=== PATIENT | male | born 1950 | race Hispanic/Latino ===

== ENCOUNTER 2020-06-28 02:46 | Emergency (ER) | payer OTHER ==
[2020-06-28] MEDS ORDERED: NA CHLORIDE 0.9% 1,000 ML ONE (03:22)
[2020-06-28] MEDS ORDERED: D50W 50 ML IV ONE (03:22)
[2020-06-28 03:26] LABS: Absolute Lymphocytes (CBC) 4.5 K/uL (0.7-4.9); Basophils % 0.6 % (0-1.3); Hematocrit 43.5 % (39.6-49.0); Lymphocytes % 31.8 % (15.3-44.8); MPV 8.2 fL (7.6-11.3); RBC Red Blood Cell Count 4.85 M/uL (4.33-5.43)
[2020-06-28 03:39] LABS: ALT/SGPT 25 U/L (12-78); AST/SGOT 17 U/L (15-37); Albumin 3.9 g/dL (3.4-5.0); Alkaline Phosphatase 109 U/L (45-117); BUN Blood Urea Nitrogen 23 mg/dL (7-18); Bicarbonate 30 mmol/L (21-32); Bilirubin Direct 0.1 mg/dL (0-0.2); Bilirubin Total 0.4 mg/dL (0.2-1.0); Glucose Level 61 mg/dL (74-106); Magnesium 2.5 mg/dL (1.8-2.4); NT PRO-BNP 108 pg/mL (<125); Sodium Level 141 mmol/L (136-145); Troponin (Emerg Dept Use Only) < 0.02 ng/mL (0.0-0.045)
[2020-06-28] MEDS ORDERED: POTASSIUM 25 MEQ EFFERV TAB ONE (04:41)
--- NOTE | 2020-06-28 05:26 | ER ---
Nurse's Notes [facility] Name: Wilbert Cano Jr Age: 70 yrs Sex: Male : 1950 Arrival Date: 06/28/2020 Time: 02:48 Bed 6 Private MD: Diagnosis: Hypoglycemia, unspecified;Hypokalemia;Unspecified kidney failure;Type 1 diabetes mellitus Presentation: 06/28 02:55 Chief complaint: Patient states: My blood sugar was very low, im not really sure how sg low but I was covered in sweat, so I dont know what I was thinking but for some reason I gave myself 48 units of my Insulin and then I gave another 15 units of my Insulin pen, then when my brother came over to check on me cause I had called him and then I started eating some things to keep my sugar up. Coronavirus screen: Client denies travel out of the [place] in the last 14 days. At this time, the client does not indicate any symptoms associated with coronavirus-19. Ebola Screen: Patient negative for fever greater than or equal to 101.5 degrees Fahrenheit, and additional compatible Ebola Virus Disease symptoms Patient denies exposure to infectious person. Patient denies travel to an Ebola-affected area in the 21 days before illness onset. No symptoms or risks identified at this time. Initial Sepsis Screen: Does the patient meet any 2 criteria? No. Patient's initial sepsis screen is negative. Does the patient have a suspected source of infection? No. Patient's initial sepsis screen is negative. Risk Assessment: Do you want to hurt yourself or someone else? Patient reports no desire to harm self or others. Onset of symptoms was June 28, 2020. Care prior to arrival: None. Mechanism of Injury: No Mechanism of Injury. Transition of care: patient was not received from another setting of care. 02:55 Acuity: SHRUTHI 2 sg 02:55 Method Of Arrival: Ambulatory sg Historical: - Allergies: 03:00 No Known Allergies; sg - Home Meds: 03:00 Insulin: Humalog Sub-Q [Active]; sg - PMHx: 03:00 Diabetes - IDDM; sg - Immunization history:: Adult Immunizations up to date. - Social history:: Smoking status: Patient denies any tobacco usage or history of. Screenin:18 Abuse screen: Denies threats or abuse. Nutritional screening: No deficits noted. ea Tuberculosis screening: No symptoms or risk factors identified. Fall Risk IV access (20 points). Assessment: 03:15 General: Appears in no apparent distress. Behavior is calm, cooperative, appropriate ll2 for age. Pain: Denies pain. Neuro: Level of Consciousness is awake, alert, obeys commands, Oriented to person, place, time, situation. Cardiovascular: Patient's skin is warm and dry. Respiratory: Airway is patent Respiratory effort is even, unlabored, Respiratory pattern is regular, symmetrical. GI: No signs and/or symptoms were reported involving the gastrointestinal system. : No signs and/or symptoms were reported regarding the genitourinary system. EENT: No signs and/or symptoms were reported regarding the EENT system. Derm: Skin is intact, is healthy with good turgor, Skin is dry, Skin is pink, warm \T\ dry. Musculoskeletal: Circulation, motion, and sensation intact. Range of motion: intact in all extremities. 04:20 Reassessment: Patient and/or family updated on plan of care and expected duration. Pain ll2 level reassessed. Patient is alert, oriented x 3, equal unlabored respirations, skin warm/dry/pink. 05:15 Reassessment: Patient and/or family updated on plan of care and expected duration. Pain ll2 level reassessed. Patient is alert, oriented x 3, equal unlabored respirations, skin warm/dry/pink. Vital Signs: 03:17 BP 109 / 74; Pulse 79; Resp 18; Temp 98; Pulse Ox 96% ; ea 04:00 BP 138 / 77; Pulse 68; Resp 18; Pulse Ox 96% on R/A; ll2 05:02 BP 145 / 77; Pulse 71; Resp 15; Pulse Ox 97% on R/A; ll2 ED Course: 02:48 Patient arrived in ED. cl3 02:49 Orlando Cunningham RN is Primary Nurse. rv 02:55 Arm band placed on. sg 02:57 Alfred Ruiz MD is Attending Physician. parminder 02:58 Patient has correct armband on for positive identification. Bed in low position. Call ll2 light in reach. Side rails up X 1. Pulse ox on. NIBP on. 02:59 Triage completed. sg 03:07 Inserted saline lock: 20 gauge in right antecubital area, using aseptic technique. ds4 Blood collected. 03:19 XRAY Chest (1 view) In Process Unspecified. EDMS 03:41 EKG done, by ED staff, reviewed by Alfred Ruiz MD. ds4 03:52 Makayla Champagne, RN is Primary Nurse. ll2 05:46 No provider procedures requiring assistance completed. IV discontinued, intact, ll2 bleeding controlled, No redness/swelling at site. Pressure dressing applied. Administered Medications: 03:17 Drug: NS 0.9% 1000 ml Route: IV; Rate: 125 ml/hr; Site: right antecubital; ea 05:48 Follow up: Response: No adverse reaction; IV Status: Order to discontinue infusion; IV ll2 Intake: 500ml 03:17 Drug: D50W 50 ml Route: IVP; Site: right antecubital; ea 04:35 Follow up: Response: No adverse reaction ll2 04:35 Drug: Potassium Effervescent Tablet 25 mEq Route: PO; ll2 05:00 Follow up: Response: No adverse reaction ll2 Point of Care Testing: Blood Glucose: 05:48 Blood Glucose: 87 mg/dL; ll2 Ranges: Intake: 05:48 IV: 500ml; Total: 500ml. ll2 Outcome: 05:26 Discharge ordered by MD. zurita 05:46 Discharged to home ambulatory. ll2 05:46 Condition: stable 05:46 Discharge instructions given to patient, Instructed on discharge instructions, follow up and referral plans. Demonstrated understanding of instructions, follow-up care. 05:47 Patient left the ED. ll2 Signatures: Dispatcher [employer] EDMS Prem Lara RN RN sg Anderson, Corey, MD MD cha Swanson, Donovan ds4 Isis Caicedo RN RN ea Vicente, Ronaldo, RN RN rv Lewis, Charde cl3 Makayla Champagne RN RN ll2
--- NOTE | 2020-06-28 05:27 | EDPHYS ---
Physician Documentation [facility] Name: Wilbert Cano Jr Age: 70 yrs Sex: Male : 1950 Arrival Date: 06/28/2020 Time: 02:48 Bed 6 Private MD: ED Physician Alfred Ruiz HPI: 06/28 03:16 This 70 yrs old Male presents to ER via Ambulatory with complaints of Altered parminder Mental Status, Low Blood Sugar. 03:16 The patient presents with confusion, decreased mental status, trouble concentrating. parminder Onset: The symptoms/episode began/occurred just prior to arrival. Possible causes: low blood sugar. Associated signs and symptoms: Pertinent positives: confusion, weakness. Current symptoms: In the emergency department the patient's symptoms have improved, moderately, is more alert. Patient's baseline: Neuro: alert and fully oriented. The patient has not experienced similar symptoms in the past. Historical: - Allergies: 03:00 No Known Allergies; sg - Home Meds: 03:00 Insulin: Humalog Sub-Q [Active]; sg - PMHx: 03:00 Diabetes - IDDM; sg - Immunization history:: Adult Immunizations up to date. - Social history:: Smoking status: Patient denies any tobacco usage or history of. ROS: 03:16 Constitutional: Negative for fever, chills, and weight loss, Eyes: Negative for injury, parminder pain, redness, and discharge, ENT: Negative for injury, pain, and discharge, Neck: Negative for injury, pain, and swelling, Cardiovascular: Negative for chest pain, palpitations, and edema, Respiratory: Negative for shortness of breath, cough, wheezing, and pleuritic chest pain, Abdomen/GI: Negative for abdominal pain, nausea, vomiting, diarrhea, and constipation, Back: Negative for injury and pain, : Negative for injury, bleeding, discharge, and swelling, MS/Extremity: Negative for injury and deformity, Skin: Negative for injury, rash, and discoloration, Psych: Negative for depression, anxiety, suicide ideation, homicidal ideation, and hallucinations, Allergy/Immunology: Negative for hives, rash, and allergies, Endocrine: Negative for neck swelling, polydipsia, polyuria, polyphagia, and marked weight changes, Hematologic/Lymphatic: Negative for swollen nodes, abnormal bleeding, and unusual bruising. 03:16 Neuro: Positive for altered mental status, weakness. Exam: 03:16 Constitutional: This is a well developed, well nourished patient who is awake, alert, parminder and in no acute distress. Head/Face: Normocephalic, atraumatic. Eyes: Pupils equal round and reactive to light, extra-ocular motions intact. Lids and lashes normal. Conjunctiva and sclera are non-icteric and not injected. Cornea within normal limits. Periorbital areas with no swelling, redness, or edema. ENT: Nares patent. No nasal discharge, no septal abnormalities noted. Tympanic membranes are normal and external auditory canals are clear. Oropharynx with no redness, swelling, or masses, exudates, or evidence of obstruction, uvula midline. Mucous membranes moist. Neck: Trachea midline, no thyromegaly or masses palpated, and no cervical lymphadenopathy. Supple, full range of motion without nuchal rigidity, or vertebral point tenderness. No Meningismus. Chest/axilla: Normal chest wall appearance and motion. Nontender with no deformity. No lesions are appreciated. Cardiovascular: Regular rate and rhythm with a normal S1 and S2. No gallops, murmurs, or rubs. Normal PMI, no JVD. No pulse deficits. Respiratory: Lungs have equal breath sounds bilaterally, clear to auscultation and percussion. No rales, rhonchi or wheezes noted. No increased work of breathing, no retractions or nasal flaring. Abdomen/GI: Soft, non-tender, with normal bowel sounds. No distension or tympany. No guarding or rebound. No evidence of tenderness throughout. Back: No spinal tenderness. No costovertebral tenderness. Full range of motion. Male : Normal genitalia with no discharge or lesions. Skin: Warm, dry with normal turgor. Normal color with no rashes, no lesions, and no evidence of cellulitis. MS/ Extremity: Pulses equal, no cyanosis. Neurovascular intact. Full, normal range of motion. Neuro: Awake and alert, GCS 15, oriented to person, place, time, and situation. Cranial nerves II-XII grossly intact. Motor strength 5/5 in all extremities. Sensory grossly intact. Cerebellar exam normal. Normal gait. Psych: Awake, alert, with orientation to person, place and time. Behavior, mood, and affect are within normal limits. 03:59 ECG was reviewed by the Attending Physician. [facility] Vital Signs: 03:17 BP 109 / 74; Pulse 79; Resp 18; Temp 98; Pulse Ox 96% ; ea 04:00 BP 138 / 77; Pulse 68; Resp 18; Pulse Ox 96% on R/A; ll2 05:02 BP 145 / 77; Pulse 71; Resp 15; Pulse Ox 97% on R/A; ll2 MDM: 03:00 Patient medically screened. [facility] 03:20 Differential Diagnosis: electrolyte abnormality, hypoglycemia, overdose, volume parminder depletion. Data reviewed: vital signs, nurses notes, lab test result(s), EKG, radiologic studies, plain films, ultrasound. Data interpreted: engine monitor: rate is 79 beats/min, rhythm is regular, Pulse oximetry: on room air is 96 %. Test interpretation: by ED physician or midlevel provider: ECG, plain radiologic studies. Counseling: I had a detailed discussion with the patient and/or guardian regarding: the historical points, exam findings, and any diagnostic results supporting the discharge/admit diagnosis, lab results, radiology results, the need for outpatient follow up. 06/28 02:59 Order name: Basic Metabolic Panel; Complete Time: 04:13 [facility] 06/28 02:59 Order name: CBC with Diff; Complete Time: 04:13 [facility] 06/28 02:59 Order name: LFT's; Complete Time: 04:13 [facility] 06/28 02:59 Order name: Magnesium; Complete Time: 04:13 [facility] 06/28 02:59 Order name: NT PRO-BNP; Complete Time: 04:13 [facility] 06/28 02:59 Order name: Troponin (emerg Dept Use Only); Complete Time: 04:13 [facility] 06/28 02:59 Order name: XRAY Chest (1 view) [facility] 06/28 02:59 Order name: EKG; Complete Time: 03:00 [facility] 06/28 03:13 Order name: Diet Regular; Complete Time: 03:14 [facility] 06/28 03:20 Order name: Glucose, Ancillary Testing; Complete Time: 04:13 [facility] 06/28 04:51 Order name: Glucose, Ancillary Testing; Complete Time: 05:24 [facility] 06/28 02:59 Order name: Cardiac monitoring; Complete Time: 03:11 [facility] 06/28 02:59 Order name: EKG - Nurse/Tech; Complete Time: 03:41 [facility] 06/28 02:59 Order name: IV Saline Lock; Complete Time: 03: [facility] 06/28 02:59 Order name: Labs collected and sent; Complete Time: 03: [facility] 06/28 02:59 Order name: O2 Per Protocol; Complete Time: 03: [facility] 06/28 02:59 Order name: O2 Sat Monitoring; Complete Time: 03: [facility] 06/28 05:24 Order name: Blood Glucose Level; Complete Time: 05:48 [facility] EC:59 Rate is 77 beats/min. Rhythm is regular. QRS [place] is Normal. [place] interval is normal. QRS parminder interval is normal. QT interval is normal. No Q waves. T waves are Normal. No ST changes noted. Clinical impression: NSR w/ Non-specific ST/T Changes and No evidence of ischemia. Interpreted by me. Reviewed by me. Administered Medications: 03:17 Drug: NS 0.9% 1000 ml Route: IV; Rate: 125 ml/hr; Site: right antecubital; ea 05:48 Follow up: Response: No adverse reaction; IV Status: Order to discontinue infusion; IV ll2 Intake: 500ml 03:17 Drug: D50W 50 ml Route: IVP; Site: right antecubital; ea 04:35 Follow up: Response: No adverse reaction ll2 04:35 Drug: Potassium Effervescent Tablet 25 mEq Route: PO; ll2 05:00 Follow up: Response: No adverse reaction ll2 Point of Care Testing: Blood Glucose: 05:48 Blood Glucose: 87 mg/dL; ll2 Ranges: Critical Glucose Levels:Adult <50 mg/dl or >400 mg/dl <40 mg/dl or >180 mg/dl Disposition: 06/28/20 05:26 Discharged to Home. Impression: Hypoglycemia, unspecified, Hypokalemia, Unspecified kidney failure, Type 1 diabetes mellitus. - Condition is Stable. - Discharge Instructions: Type 1 Diabetes Mellitus, Diagnosis, Adult, Potassium Content of Foods, Hypoglycemia, Blood Glucose Monitoring, Adult, Diabetes Mellitus and Food, Chronic Kidney Disease, Adult, [id number], Hypoglycemia, [id number], Hypokalemia, Type 1 Diabetes Mellitus, Diagnosis, Adult, [id number], Type 1 Diabetes Mellitus, Self Care, Adult, [id number]. - Medication Reconciliation Form, Thank You Letter, Antibiotic Education, Prescription Opioid Use form. - Follow up: Private Physician; When: 2 - 3 days; Reason: Recheck today's complaints, Continuance of care, Re-evaluation by your physician. - Problem is new. - Symptoms have improved. Signatures: Dispatcher [employer] EDMS Prem Lara RN RN sg Anderson, Corey, MD MD cha Antunez, Elena RN Makayla López ea RN RN ll2 Corrections: (The following items were deleted from the chart) 05:47 05:26 06/28/2020 05:26 Discharged to Home. Impression: Hypoglycemia, unspecified; ll2 Hypokalemia; Unspecified kidney failure; Type 1 diabetes mellitus. Condition is Stable. Discharge Instructions: Type 1 Diabetes Mellitus, Diagnosis, Adult, Potassium Content of Foods, Hypoglycemia, Blood Glucose Monitoring, Adult, Diabetes Mellitus and Food, Chronic Kidney Disease, Adult, [id number], Hypoglycemia, [id number], Hypokalemia, Type 1 Diabetes Mellitus, Diagnosis, Adult, [id number], Type 1 Diabetes Mellitus, Self Care, Adult, [id number]. Forms are Medication Reconciliation Form, Thank You Letter, Antibiotic Education, Prescription Opioid Use. Follow up: Private Physician; When: 2 - 3 days; Reason: Recheck today's complaints, Continuance of care, Re-evaluation by your physician. Problem is new. Symptoms have improved. parminder
--- NOTE | 2020-06-28 07:33 | RAD REPORT ---
EXAM DESCRIPTION: Ronald Single View06/28/2020 3:20 am CLINICAL HISTORY: Cough COMPARISON: 2007 FINDINGS: The lungs appear clear of acute infiltrate. The heart is normal size IMPRESSION: No acute abnormalities displayed
[2020-06-28 10:19] VITALS: TEMP 98
[2020-06-28 10:31] VITALS: BP 145/77; O2SAT 97
== END 2020-06-28 05:47 | disposition home or self-care (01) ==
LOC: ER 02:46
DX: E10.649 Type 1 diabetes mellitus with hypoglycemia without coma (principal); E87.6 Hypokalemia; N19 Unspecified kidney failure; Z79.4 Long term (current) use of insulin
CPT/HCPCS: 96361; 93005; 85025; 80048; 36415; 83735; 82947 ×3; 80076; 84484; 83880; 71045; 96374; 99284; J7030

== ENCOUNTER 2022-10-07 14:39 | Emergency (ER) | payer OTHER ==
--- OUTSIDE RECORDS SUMMARY | 2022-10-07 14:42 | XMS REPORT | Continuity of Care Document ---
:1950 Author Organization [facility] t Address [address] [place] [address] Care Team Providers Name Role Phone ADRY STARK Attending Clinician Unavailable PHIL ACEVEDO Attending Clinician Unavailable LAB90 Attending Clinician Unavailable THANIA LEE Attending Clinician Unavailable LAUREL ESPANA Attending Clinician Unavailable Collin MILLER, Sasha Suh Attending Clinician [phone] ASAF ROY Attending Clinician Unavailable Payers Payer Name Policy Type Policy Number Effective Date Expiration Date Tony marshall [facility] 7 [id number] 2021 GIVEBACK ([facility]) 00:00:00 Problems Condition Condition Condition Status Onset Resolution Last Treating Co mments Source Name Details Category Date Date Treatment Clinician Date Gastroesop Gastroesop Disease Active 2021-08 K jun hageal hageal 2-20 Seybold reflux reflux 00:00: - disease disease 00 Externa without without l esophagiti esophagiti s s Peripheral Peripheral Disease Active 2021-08 K jun vascular vascular 0-11 Seybol d disease of disease of 00:00: - extremity extremity 00 Exte rna l Well adult Well adult Disease Active 2021-08 K jun exam exam 0-04 Seybold 00:00: - 00 Externa l Primary Primary Disease Active 2021-08 Sharmin hypertensi hypertensi 0-04 Se ybold on on 00:00: - 00 Externa l Type 2 Type 2 Disease Active 2021-08 Sharmin diabetes diabetes 0-04 Seybol d mellitus mellitus 00:00: - with with 00 Externa hyperlipid hyperlipid l emia emia Dyspnea on Dyspnea on Disease Active 2021-08 K elsey exertion exertion 0-04 Seybol d 00:00: - 00 Externa l Benign Benign Disease Active 2021-08 Sharmin prostatic prostatic 0-04 Seyb old hyperplasi hyperplasi 00:00: - a without a without 00 Exte rna lower lower l urinary urinary tract tract symptoms symptoms Current Current Disease Active 2021-08 Sharmin mild mild 0-04 Seybold episode of episode of 00:00: - major major 00 Externa depressive depressive l disorder disorder without without prior prior episode episode GRACE GRACE Disease Active 2021-08 Sharmin (obstructi (obstructi 0-04 Se ybold ve sleep ve sleep 00:00: - apnea) apnea) 00 Externa l Allergies, Adverse Reactions, Alerts Allergy Allergy Status Severity Reaction(s) Onset Inactive Treating Comm ents Source Name Type Date Date Clinician Metformi Propensi Active Diarrhea Cheryl ey n ty to 1-11 Seybold adverse 00:00: - reaction 00 Externa s l Social History Social Habit Start Date Stop Date Quantity Comments Source Cigarettes smoked 2022-07-30 2022-07-30 Sharmin Pratt - current (pack per 00:00:00 00:00:00 Externa l day) - Reported Cigarette 2022-07-30 2022-07-30 Sharmin Pratt - pack-years 00:00:00 00:00:00 External Tobacco use and 2022-07-30 2022-07-30 Smokeless tobacco Ke praveen Pratt - exposure 00:00:00 00:00:00 non-user External Alcohol intake 2022-07-30 2022-07-30 Ex-drinker Sharmin gilliland - 00:00:00 00:00:00 (finding) External Education 2022-05-07 2022-05-07 16 Sharmin Pratt - 00:00:00 00:00:00 External Sex [birth year] Sharmin vargas - 00:00:00 00:00:00 External Smoking Status Start Date Stop Date Source Ex-smoker 2022-07-30 00:00:00 2022-07-30 00:00:00 Sharmin winn - External Smokes tobacco daily 2022-05-07 00:00:00 Sharmin Seybold - External Medications Ordered Filled Start Stop Current Ordering Indication Dosage Frequency Signature Comments Components Source Medication Medication Date Date Medication? Clinician (SIG) Name Name Famotidine 2021-08 Yes [id number] 20mg Take 1 Sharmin (Pepcid) 20 2-27 tablet (20 Se ybold MG oral 00:00: mg total) - tablet 00 by mouth 2 Externa times l daily Glucose 2021-08 Yes [id number] Check BS Ke lsey Blood in 2-20 twice Seybold vitro Strip 00:00: daily - 00 Externa l Famotidine 2021-08 Yes [id number] 20mg Take 1 Sharmin (Pepcid) 20 2-20 tablet (20 Se ybold MG oral 00:00: mg total) - tablet 00 by mouth 2 Externa times l daily Glucose 2021-08 Yes [id number] Check BS Ke lsey Blood in 2-20 twice Seybold vitro Strip 00:00: daily - 00 Externa l Famotidine 2021-08- No [id number] 20mg Take 1 Sharmin (Pepcid) 20 2-20 12-27 tablet (20 S eybold MG oral 00:00: 00:00 mg total) - tablet 00 :00 by mouth 2 Externa times l daily OZEMPIC (2021-08 Yes [id number] 1mg Inject 1 Sharmin mg/dose) 4 0-10 mg into Seybol d mg/3 mL SQ 00:00: the skin - Solution 00 once a Externa Pen-Injecto week l r Tamsulosin 2021-08 Yes [id number] .4mg Take 1 Sharmin HCl 0.4 MG 0-10 capsule Seybol d oral 00:00: (0.4 mg - Capsule 00 total) by Externa mouth l every night at bedtime OZEMPIC (2021-08 Yes [id number] 1mg Inject 1 Sharmin mg/dose) 4 0-10 mg into Seybol d mg/3 mL SQ 00:00: the skin - Solution 00 once a Externa Pen-Injecto week l r Tamsulosin 2021-08 Yes [id number] .4mg Take 1 Sharmin HCl 0.4 MG 0-10 capsule Seybol d oral 00:00: (0.4 mg - Capsule 00 total) by Externa mouth l every night at bedtime glipiZIDE 5 2021-08 Yes [id number] 5mg Take 1 Sharmin MG oral 0-05 tablet (5 Seybold Tablet 00:00: mg total) - 00 by mouth Externa daily l (before a meal) glipiZIDE 5 2021-08 Yes [id number] 5mg Take 1 Sharmin MG oral 0-05 tablet (5 Seybold Tablet 00:00: mg total) - 00 by mouth Externa daily l (before a meal) Paroxetine 2021-08 Yes [id number] 20mg Take 1 K elsey HCl 20 MG 0-04 tablet (20 Seyb old oral Tablet 00:00: mg total) - 00 by mouth Externa every l morning Atorvastati 2021-08 Yes [id number] 40mg Take 1 Sharmin n Calcium 0-04 tablet (40 Seyb old 40 MG oral 00:00: mg total) - Tablet 00 by mouth Externa daily l Finasteride 2021-08 Yes [id number] 5mg Take 1 Sharmin 5 MG oral 0-04 tablet (5 Seybo ld Tablet 00:00: mg total) - 00 by mouth Externa daily l Cholecalcif 2021-08 Yes [id number] 1{tbl} Take 1 Sharmin babatunde 50 MCG 0-04 tablet by Yamilet gilliland (1999) 00:00: mouth - oral Tablet 00 daily Externa l Paroxetine 2021-08 Yes [id number] 20mg Take 1 K elsey HCl 20 MG 0-04 tablet (20 Seyb old oral Tablet 00:00: mg total) - 00 by mouth Externa every l morning Atorvastati 2021-08 Yes [id number] 40mg Take 1 Sharmin n Calcium 0-04 tablet (40 Seyb old 40 MG oral 00:00: mg total) - Tablet 00 by mouth Externa daily l Finasteride 2021-08 Yes [id number] 5mg Take 1 Sharmin 5 MG oral 0-04 tablet (5 Seybo ld Tablet 00:00: mg total) - 00 by mouth Externa daily l Cholecalcif 2021-08 Yes [id number] 1{tbl} Take 1 Sharmin babatunde 50 MCG 0-04 tablet by Yamilet gilliland (1999) 00:00: mouth - oral Tablet 00 daily Externa l Paroxetine 2021-08 Yes [id number] 20mg Take 1 K elsey HCl 20 MG 0-04 tablet (20 Seyb old oral Tablet 00:00: mg total) - 00 by mouth Externa every l morning Atorvastati 2021-08 Yes [id number] 40mg Take 1 Sharmin n Calcium 0-04 tablet (40 Seyb old 40 MG oral 00:00: mg total) - Tablet 00 by mouth Externa daily l Finasteride 2021-08 Yes [id number] 5mg Take 1 Sharmin 5 MG oral 0-04 tablet (5 Seybo ld Tablet 00:00: mg total) - 00 by mouth Externa daily l Cholecalcif 2021-08 Yes [id number] 1{tbl} Take 1 Sharmin babatunde 50 MCG 0-04 tablet by Yamilet gilliland (1999) 00:00: mouth - oral Tablet 00 daily Externa l Atorvastati 2021- No 40mg 40 mg Cheryl ey n Calcium 03-15 Seybold 80 MG oral 00:00: 00:00 - Tablet 00 :00 Externa l Cholecalcif 2021- No 50ug 50 mcg Yousuf sey babatunde 50 MCG 03-15 Seybold (1999) 00:00: 00:00 - oral Tablet 00 :00 Externa l Amoxicillin 2021- No [id number] 1{tbl} Take 1 Sharmin -Pot 03-01 tablet by Seybold Clavulanate 00:00: 00:00 mouth 3 - 500-125 MG 00 :00 times Externa oral Tablet daily l Mupirocin 2021- No [id number] Apply 1 Sharmin (BACTROBAN) 03-01 applicatio S eybold 2 % apply 00:00: 00:00 n - externally 00 :00 topically Exte rna Ointment 3 times l daily Paroxetine 2021- No 20mg 20 mg Kelse y HCl 40 MG 12-03 Seybold oral Tablet 00:00: 00:00 - 00 :00 Externa l Insulin Yes INJECT 20 Kelse y Aspart 100 4-22 UNITS Seybold UNIT/ML 00:00: UNDER THE - subcutaneou 00 SKIN THREE Ex terna s Solution TIMES A l Pen-injecto DAY BEFORE r MEALS FOR DIABETES. INJECT 5 MINUTES BEFORE EACH MEAL FOR DIABETES. DO NOT ADMINISTER IF MEAL IS MISSED OR SKIPPED. Insulin Yes INJECT 20 Kelse y Aspart 100 4-22 UNITS Seybold UNIT/ML 00:00: UNDER THE - subcutaneou 00 SKIN THREE Ex terna s Solution TIMES A l Pen-injecto DAY BEFORE r MEALS FOR DIABETES. INJECT 5 MINUTES BEFORE EACH MEAL FOR DIABETES. DO NOT ADMINISTER IF MEAL IS MISSED OR SKIPPED. Insulin Yes INJECT 20 Kelse y Aspart 100 4-22 UNITS Seybold UNIT/ML 00:00: UNDER THE - subcutaneou 00 SKIN THREE Ex terna s Solution TIMES A l Pen-injecto DAY BEFORE r MEALS FOR DIABETES. INJECT 5 MINUTES BEFORE EACH MEAL FOR DIABETES. DO NOT ADMINISTER IF MEAL IS MISSED OR SKIPPED. Empaglifloz 2021- No 25mg 25 mg Cheryl ey in 25 MG 11-23 Seybold oral Tablet 00:00: 00:00 - 00 :00 Externa l Amlodipine 2021- No 5mg 5 mg Sharmin Besylate 5 10-01 Seybold MG oral 00:00: 00:00 - Tablet 00 :00 Externa l Losartan 2021- No 1{tbl} Take 1 Cheryl ey Potassium 10-01 tablet by Seyb old 50 MG oral 00:00: 00:00 mouth - Tablet 00 :00 daily Externa l Trazodone 2021- No 25mg 25 mg Sharmin HCl 50 MG 10-01 Seybold oral Tablet 00:00: 00:00 - 00 :00 Externa l Finasteride 2020-08- No 5mg 5 mg Kelse y 5 MG oral 10-01 Seybold Tablet 00:00: 00:00 - 00 :00 Externa l Immunizations Ordered Immunization Filled Immunization Date Status Commen ts Source Name Name Influenza Virus 2022-05-07 Completed Sharmin Se ybold Vaccine, 00:00:00 - External Quadrivalent, High Dose, Age 65 And Up Influenza Virus 2022-05-07 Completed Sharmin Se ybold Vaccine, 00:00:00 - External Quadrivalent, High Dose, Age 65 And Up Influenza Virus 2022-05-07 Completed Sharmin Se ybold Vaccine, 00:00:00 - External Quadrivalent, High Dose, Age 65 And Up Shingles IM 2021-07-25 Completed Sharmin Seybol d (Shingrix) 00:00:00 - External Shingles IM 2021-07-25 Completed Sharmin Seybol d (Shingrix) 00:00:00 - External Shingles IM 2021-07-25 Completed Sharmin Seybol d (Shingrix) 00:00:00 - External Influenza vaccine, 2021-05-02 Completed Sharmin Seybold quadrivalent, 00:00:00 - External adjuvanted Influenza vaccine, 2021-05-02 Completed Sharmin Seybold quadrivalent, 00:00:00 - External adjuvanted Influenza vaccine, 2021-05-02 Completed Sharmin Seybold quadrivalent, 00:00:00 - External adjuvanted Shingles IM 2020-08-25 Completed Sharmin Seybol d (Shingrix) 00:00:00 - External Shingles IM 2020-08-25 Completed Sharmin Seybol d (Shingrix) 00:00:00 - External Shingles IM 2020-08-25 Completed Sharmin Seybol d (Shingrix) 00:00:00 - External Influenza Virus 2020-04-28 Completed Sharmin Se ybold Vaccine, 00:00:00 - External Quadrivalent, High Dose, Age 65 And Up Influenza Virus 2020-04-28 Completed Sharmin Se ybold Vaccine, 00:00:00 - External Quadrivalent, High Dose, Age 65 And Up Influenza Virus 2020-04-28 Completed Sharmin Se ybold Vaccine, 00:00:00 - External Quadrivalent, High Dose, Age 65 And Up Pneumococcal Vaccine, 2019-06-08 Completed Yousuf sey Seybold Polysaccharide 00:00:00 - External Pneumococcal Vaccine, 2019-06-08 Completed Yousuf sey Seybold Polysaccharide 00:00:00 - External Pneumococcal Vaccine, 2019-06-08 Completed Yousuf sey Seybold Polysaccharide 00:00:00 - External Seasonal Trivalent 2019-04-27 Completed Sharmin Seybold Influenza Vaccine, 00:00:00 - Exte rnal Adjuvanted, Preserve Seasonal Trivalent 2019-04-27 Completed Sharmin Seybold Influenza Vaccine, 00:00:00 - Exte rnal Adjuvanted, Preserve Seasonal Trivalent 2019-04-27 Completed Sharmin ybold Influenza Vaccine, 00:00:00 - Exte rnal Adjuvanted, Preserve Influenza Virus 2018-05-25 Completed Sharmin Se ybold Vaccine, High Dose, 00:00:00 - Ext ernal Age 65 And Up Influenza Virus 2018-05-25 Completed Sharmin Se ybold Vaccine, High Dose, 00:00:00 - Ext ernal Age 65 And Up Influenza Virus 2018-05-25 Completed Sharmin Se ybold Vaccine, High Dose, 00:00:00 - Ext ernal Age 65 And Up Influenza Virus 2017-09-05 Completed Sharmin Se ybold Vaccine, High Dose, 00:00:00 - Ext ernal Age 65 And Up Pneumococcal Vaccine, 2017-09-05 Completed Yousuf sey Seybold Conjugate 13 00:00:00 - External Influenza Virus 2017-09-05 Completed Sharmin Se ybold Vaccine, High Dose, 00:00:00 - Ext ernal Age 65 And Up Pneumococcal Vaccine, 2017-09-05 Completed Yousuf sey Seybold Conjugate 13 00:00:00 - External Influenza Virus 2017-09-05 Completed Sharmin Se ybold Vaccine, High Dose, 00:00:00 - Ext ernal Age 65 And Up Pneumococcal Vaccine, 2017-09-05 Completed Yousuf sey Seybold Conjugate 13 00:00:00 - External Influenza Virus 2016-04-26 Completed Sharmin Se ybold Vaccine, High Dose, 00:00:00 - Ext ernal Age 65 And Up Influenza Virus 2016-04-26 Completed Sharmin Se ybold Vaccine, High Dose, 00:00:00 - Ext ernal Age 65 And Up Influenza Virus 2016-04-26 Completed Sharmin Se ybold Vaccine, High Dose, 00:00:00 - Ext ernal Age 65 And Up Influenza Virus 2015-05-12 Completed Sharmin Se ybold Vaccine, High Dose, 00:00:00 - Ext ernal Age 65 And Up Tdap- (Boostrix, 2015-05-12 Completed Sharmin winn Adacel) 00:00:00 - External Influenza Virus 2015-05-12 Completed Sharmin Se ybold Vaccine, High Dose, 00:00:00 - Ext ernal Age 65 And Up Tdap- (Boostrix, 2015-05-12 Completed Sharmin sorianobold Adacel) 00:00:00 - External Influenza Virus 2015-05-12 Completed Sharmin ybold Vaccine, High Dose, 00:00:00 - Ext ernal Age 65 And Up Tdap- (Boostrix, 2015-05-12 Completed Sharmin sorianobold Adacel) 00:00:00 - External Influenza Virus 2014-09-20 Completed Sharmin Morton ybold Vaccine, High Dose, 00:00:00 - Ext ernal Age 65 And Up Influenza Virus 2014-09-20 Completed Sharmin Se ybold Vaccine, High Dose, 00:00:00 - Ext ernal Age 65 And Up Influenza Virus 2014-09-20 Completed Sharmin Morton ybold Vaccine, High Dose, 00:00:00 - Ext ernal Age 65 And Up Influenza Virus 2013-09-07 Completed Sharmin Se ybold Vaccine, Unspecified 00:00:00 - Ex ternal Formulation Influenza Virus 2013-09-07 Completed Sharmin Morton ybold Vaccine, Unspecified 00:00:00 - Ex ternal Formulation Influenza Virus 2013-09-07 Completed Sharmin Se ybold Vaccine, Unspecified 00:00:00 - Ex ternal Formulation pneumococcal, 2012-10-26 Completed Sharmin Anaya old unspecified 00:00:00 - External formulation Shingles SQ 2012-10-26 Completed Sharmin Mortonybol d (Zostavax) 00:00:00 - External pneumococcal, 2012-10-26 Completed Sharmin Mortonyb old unspecified 00:00:00 - External formulation Shingles SQ 2012-10-26 Completed Sharmin Seybol d (Zostavax) 00:00:00 - External pneumococcal, 2012-10-26 Completed Sharmin Mortonyb old unspecified 00:00:00 - External formulation Shingles SQ 2012-10-26 Completed Sharmin Seybol d (Zostavax) 00:00:00 - External Influenza Virus 2012-08-11 Completed Sharmin Se ybold Vaccine, Unspecified 00:00:00 - Ex ternal Formulation Influenza Virus 2012-08-11 Completed Sharmin Se ybold Vaccine, Unspecified 00:00:00 - Ex ternal Formulation Influenza Virus 2012-08-11 Completed Sharmin Se ybold Vaccine, Unspecified 00:00:00 - Ex ternal Formulation Vital Signs Vital Name Observation Time Observation Value Comments Source Body height 2022-07-30 20:00:00 170.2 cm Sharmin Jimenez eybold - External Body weight 2022-07-30 20:00:00 74.844 kg Sharmin Jimenez eybold - External BMI 2022-07-30 20:00:00 25.84 kg/m2 Sharmin Jimenez eybold - External Systolic blood 2022-07-23 22:07:00 132 mm[Hg] Sharmin Seybold - pressure External Diastolic blood 2022-07-23 22:07:00 86 mm[Hg] Yousufse y Seybold - pressure External Heart rate 2022-07-23 22:07:00 85 /min Sharmin Jimenez eybold - External Body temperature 2022-07-23 22:07:00 37.17 Twila Cheryl ey Seybold - External Respiratory rate 2022-07-23 22:07:00 14 /min Cheryl soriano Seybold - External Body height 2022-07-23 22:07:00 170.2 cm Sharmin Jimenez eybold - External Body weight 2022-07-23 22:07:00 74.844 kg Sharmin Jimenez eybold - External BMI 2022-07-23 22:07:00 25.84 kg/m2 Sharmin Jimenez eybold - External Oxygen saturation in 2022-07-23 22:07:00 99 /min Sharmin Pratt - Arterial blood by External Pulse oximetry Systolic blood 2022-05-07 18:12:00 92 mm[Hg] Sharmin Seybold - pressure External Diastolic blood 2022-05-07 18:12:00 42 mm[Hg] Lizette y Seybold - pressure External Heart rate 2022-05-07 18:12:00 74 /min Sharmin Jimenez eybold - External Body temperature 2022-05-07 18:12:00 36.28 Twila Cheryl ey Seybold - External Respiratory rate 2022-05-07 18:12:00 14 /min Cheryl soriano Seybold - External Body height 2022-05-07 18:12:00 170.2 cm Sharmin Jimenez eybold - External Body weight 2022-05-07 18:12:00 74.39 kg Sharmin Jimenez eybold - External BMI 2022-05-07 18:12:00 25.69 kg/m2 Sharmin Jimenez eybold - External Procedures Procedure Date / Time Performed Performing Clinician Missy DAVIS 2022-05-07 18:30:30 Adry Stark ld - External Encounters Start End Encounter Admission Attending Care Care Encounter Source Date/Time Date/Time Type Type Clinicians Facility Department ID 2022-08-20 2022-08-20 Outpatient SHARMIN STARK [id number] Sharmin 15:30:00 15:30:00 ADRY Seybol d 2022-07-30 2022-07-30 Outpatient BORSKISHARMIN [id number] Sharmin 14:15:00 14:15:00 PHIL Seybol d 2022-07-24 2022-07-24 Outpatient PREZASHARMIN Jimenez [id number] Sharmin 00:00:00 00:00:00 ADRY Seybol d 2022-07-23 2022-07-23 Outpatient PATYZASHARMIN Jimenez [id number] Sharmin 16:30:00 16:30:00 ADRY Seybol d 2022-07-10 2022-07-10 Outpatient PREZASSHARMIN [id number] Sharmin 00:00:00 00:00:00 ADRY Seybol d 2022-05-08 2022-05-08 Outpatient PRESHARMIN FERNANDES [id number] Sharmin 00:00:00 00:00:00 ADRY Seybol d 2022-05-08 2022-05-08 Outpatient PREZASHARMIN Jimenez [id number] Sharmin 00:00:00 00:00:00 ADRY Seybol d 2022-05-08 2022-05-08 Outpatient PREZASSHARMIN [id number] Sharmin 00:00:00 00:00:00 ADRY Seybol d 2022-05-07 2022-05-07 Outpatient LAB90 SHARMIN MCCARTNEY [id number] Sharmin 14:30:00 14:30:00 Seybol d 2022-05-07 2022-05-07 Outpatient PREZASHARMIN Jimenez [id number] Sharmin 13:30:00 13:30:00 ADRY Seybol d 2022-05-07 2022-05-07 Outpatient FATOU SHARMIN MCCARTNEY [id number] Sharmin 00:00:00 00:00:00 ADRY Seybol d 2022-03-04 2022-03-04 Outpatient ROSA SHARMIN MCCARTNEY [id number] Sharmin 14:00:00 14:00:00 TRENETH Seybol d 2022-03-04 2022-03-04 Outpatient SHARMIN ESPANA [id number] Sharmin 10:30:00 10:30:00 AYESHIA Seybol d 2022-03-01 2022-03-01 Office Collin Boles [id number] Sharmin 15:00:00 15:30:00 Visit Sasha Abimael [id number] Se sam Garciaamaripam [id number] 2022-03-01 2022-03-01 Outpatient SHARMIN ESPANA [id number] Sharmin 00:00:00 00:00:00 AYESHIA Seybol d 2022-01-17 2022-01-17 Outpatient MANUELASHARMIN [id number] Sharmin 13:45:00 13:45:00 ASAF Seybol d Results Test Description Test Time Test Comments Results Result Comments Source [facility] 2022-05-07 18:31:32 Test Item Value Reference Range Interpretation [facility] (test code See_Comment L [Automated message] The system = [id number]) which generated this result transmitted ref erence range: 1.40 - 0.90 NA. The reference range was not u sed to interpret this result as normal/abnormal. [employer] right side (test See_Comment L P resentation Factors: code = 71713-1G) Hypertensio n, Hyperlipidemia, DiabetesExercis e Modality: At RestNormal - 1. 40 - 1.00Borderline - 0.99 - 0.90Mild - 0.89 - 0.60Mo derate - 0.59 - 0.30Severe - 0. 29 - 0.00 [Automated mess age] The system which generated this result transmitted ref erence range: 1.40 - 0.90 NA. The reference range was not u sed to interpret this result as normal/abnormal. Lab Interpretation (test code Abnormal = 09501-8) Sharmin Pratt - Bon
--- NOTE | 2022-10-07 16:40 | RAD REPORT ---
EXAM DESCRIPTION: Ronald Single View10/07/2022 4:22 pm CLINICAL HISTORY: Shortness of breath COMPARISON: 2020 FINDINGS: Moderate central bilateral alveolar opacities. Heart is normal size. There may small pleural effusions IMPRESSION: Moderate central bilateral alveolar opacities may represent pulmonary edema or pneumonia
[2022-10-07] MEDS ORDERED: ASPIRIN 81 MG CHEWABLE TABLET ONE (16:50)
[2022-10-07 17:17] LABS: Absolute Lymphocytes (CBC) 1.2 K/uL (0.7-4.9); Hematocrit 47.5 % (39.6-49.0); Lymphocytes % 11.1 % (15.3-44.8); MCV 91.4 fL (80-100); MPV 8.1 fL (7.6-11.3)
[2022-10-07 17:21] LABS: Magnesium 2.2 mg/dL (1.6-2.4); Potassium 4.4 mmol/L (3.5-5.1)
[2022-10-07 17:26] LABS: Troponin High Sensitivity 323.5 pg/mL (<58.9)
--- NOTE | 2022-10-07 17:46 | ER ---
Nurse's Notes [facility] Name: Wilbert Cano Jr Age: 72 yrs Sex: Male : 1950 Arrival Date: 10/07/2022 Time: 14:40 Bed 12 Private MD: Diagnosis: Subsequent non-ST elevation (NSTEMI) myocardial infarction;Heart failure, unspecified;Shortness of breath Presentation: 10/07 15:17 Acuity: SHRUTHI 2 aa5 15:17 Method Of Arrival: Wheelchair aa 15:17 Coronavirus screen: shortness of breath. Ebola Screen: Patient denies travel to an [facility] Ebola-affected area in the 21 days before illness onset. Initial Sepsis Screen: Does the patient meet any 2 criteria? HR > 90 bpm. Does the patient have a suspected source of infection? No. Patient's initial sepsis screen is negative. Risk Assessment: Do you want to hurt yourself or someone else? Patient reports no desire to harm self or others. Onset of symptoms was October 2022. 15:17 Chief complaint: Patient states: SOB on exertion x 1 month ago. Pt reports intermittent aa5 chest pain. Pt states "I have acid reflux and I haven't been able to eat much". Historical: - Allergies: 15:20 No Known Allergies; aa5 - PMHx: 15:20 Diabetes - IDDM; Hypertensive disorder; Acid Reflux; aa5 - PSHx: 15:21 None; aa5 - Immunization history:: Adult Immunizations unknown. - Social history:: Smoking status: Patient denies any tobacco usage or history of. Screenin:58 [facility] ED Fall Risk Assessment (Adult) Score/Fall Risk Level 0 - 2 = Low Risk. Abuse eh3 screen: Denies threats or abuse. Denies injuries from another. Nutritional screening: No deficits noted. Tuberculosis screening: No symptoms or risk factors identified. Assessment: 16:58 General: Appears in no apparent distress. uncomfortable, Behavior is calm, cooperative, eh3 appropriate for age. Pain: Denies pain. Neuro: Level of Consciousness is awake, alert, obeys commands, Oriented to person, place, time, situation. Cardiovascular: Capillary refill < 3 seconds Patient's skin is warm and dry. Rhythm is sinus tachycardia. Respiratory: Airway is patent Respiratory effort is even, unlabored, Respiratory pattern is regular, symmetrical. Respiratory: Reports shortness of breath on exertion labored breathing Breath sounds are clear bilaterally. GI: Reports epigastric pain. GI: Abdomen is flat, non-distended. : No signs and/or symptoms were reported regarding the genitourinary system. EENT: No signs and/or symptoms were reported regarding the EENT system. Derm: Skin is pink, warm \\T\\ dry. Musculoskeletal: Circulation, motion, and sensation intact. Range of motion: intact in all extremities. Vital Signs: 15:17 BP 98 / 66; Pulse 105; Resp 20 S; Temp 97.7(O); Pulse Ox 96% on R/A; Weight 65.77 kg aa5 (R); Height 5 ft. 9 in. (175.26 cm) (R); 16:57 BP 100 / 67; Pulse 106; Resp 20; Pulse Ox 99% on R/A; eh3 15:17 Body Mass Index 21.41 (65.77 kg, 175.26 cm) aa5 ED Course: 14:40 Patient arrived in ED. mr 14:42 Edi Zhang DO is Attending Physician. ms3 15:17 Arm band placed on. aa5 15:18 Triage completed. aa5 15:24 EKG completed in triage. Results shown to MD. aa5 16:44 Dunia Chaudhry, RN is Primary Nurse. eh3 16:58 Patient has correct armband on for positive identification. Bed in low position. Call 3 light in reach. Side rails up X2. Client placed on continuous cardiac and pulse oximetry monitoring. NIBP monitoring applied. Door closed. Noise minimized. Lights dimmed. Warm blanket given. Pillow given. Administered Medications: 16:57 Drug: Aspirin Chewable Tablet 324 mg Route: PO; 3 Outcome: 17:45 ER care complete, transfer ordered by MD. ms3 Signatures: Snow Tariq MarquisRenetta RN RN aa5 Edi Zhang DO DO ms3 Dunia Chaudhry, ELI RN 3 Corrections: (The following items were deleted from the chart) 15:19 15:17 Acuity: SHRUTHI 3 aa5 aa5 15:19 15:17 Chief complaint: Patient states: SOB on exertion x 1 month ago aa5 aa5 15:20 15:17 Chief complaint: Patient states: SOB on exertion x 1 month ago. aa5 aa5
--- NOTE | 2022-10-07 17:46 | EDPHYS ---
Physician Documentation [facility] Name: Wilbert Cano Jr Age: 72 yrs Sex: Male : 1950 Arrival Date: 10/07/2022 Time: 14:40 Bed 12 Private MD: ED Physician Edi Zhang HPI: 10/07 16:22 This 72 yrs old Male presents to ER via Wheelchair with complaints of ms3 Breathing Difficulty. 16:22 72-year-old male with past medical history of diabetes, hypertension, GERD presents for ms3 shortness of breath with ambulation and chest pain. Patient denies pain at this time. Patient endorses nausea and vomiting. Patient states the symptoms have been ongoing for 4 months. Historical: - Allergies: 15:20 No Known Allergies; aa5 - PMHx: 15:20 Diabetes - IDDM; Hypertensive disorder; Acid Reflux; aa5 - PSHx: 15:21 None; aa5 - Immunization history:: Adult Immunizations unknown. - Social history:: Smoking status: Patient denies any tobacco usage or history of. ROS: 16:22 Constitutional: Negative for fever, and chills. Eyes: Negative for injury, pain, ms3 redness, and discharge, Neck: Negative for injury, pain, and swelling, Cardiovascular: Negative for chest pain, and palpitations. Abdomen/GI: Negative for abdominal pain, nausea, vomiting, diarrhea, and constipation, MS/Extremity: Negative for injury and deformity, Skin: Negative for injury, rash, and discoloration. 16:22 Respiratory: Positive for shortness of breath. 16:22 All other systems are negative. Exam: 16:16 ECG was reviewed by the Attending Physician. ms3 16:22 Constitutional: This is a well developed, well nourished patient who is awake, alert, ms3 and in no acute distress. Head/Face: Normocephalic, atraumatic. Neck: Trachea midline, no cervical lymphadenopathy. Supple, full range of motion without nuchal rigidity, or vertebral point tenderness. No Meningismus. Chest/axilla: Normal chest wall appearance and motion. Nontender with no deformity. Cardiovascular: Regular rate and rhythm with a normal S1 and S2. No gallops, murmurs, or rubs. Normal PMI, no JVD. No pulse deficits. Respiratory: Lungs have equal breath sounds bilaterally, clear to auscultation and percussion. No rales, rhonchi or wheezes noted. No increased work of breathing, no retractions or nasal flaring. Abdomen/GI: Soft, non-tender, with normal bowel sounds. No distension or tympany. No guarding or rebound. No evidence of tenderness throughout. Skin: Warm, dry with normal turgor. Normal color with no rashes, no lesions, and no evidence of cellulitis. MS/ Extremity: Pulses equal, no cyanosis. Neurovascular intact. Full, normal range of motion. Vital Signs: 15:17 BP 98 / 66; Pulse 105; Resp 20 S; Temp 97.7(O); Pulse Ox 96% on R/A; Weight 65.77 kg aa5 (R); Height 5 ft. 9 in. (175.26 cm) (R); 16:57 BP 100 / 67; Pulse 106; Resp 20; Pulse Ox 99% on R/A; eh3 15:17 Body Mass Index 21.41 (65.77 kg, 175.26 cm) aa5 MDM: 15:41 Patient medically screened. ms3 16:22 Differential diagnosis: CHF exacerbation, Myocardial Infarction pneumonia, Pneumothorax.ms3 10/07 15:24 Order name: EKG - Nurse/Tech; Complete Time: 15:24 aa5 10/07 16:01 Order name: Basic Metabolic Panel ms3 10/07 16:01 Order name: CBC with Diff ms3 10/07 16:01 Order name: Magnesium ms3 10/07 16:01 Order name: NT PRO-BNP ms3 10/07 16:01 Order name: Troponin HS ms3 10/07 16:01 Order name: XRAY Chest (1 view) ms3 10/07 16:01 Order name: EKG; Complete Time: 16:02 ms3 10/07 16:01 Order name: Cardiac monitoring; Complete Time: 16:44 ms3 10/07 16:01 Order name: EKG - Nurse/Tech; Complete Time: 16:44 ms3 10/07 16:01 Order name: O2 Per Protocol; Complete Time: 16:44 ms3 10/07 16:01 Order name: O2 Sat Monitoring; Complete Time: 16:44 ms3 10/07 16:01 Order name: IV Saline Lock; Complete Time: 16:57 ms3 10/07 16:01 Order name: Labs collected and sent; Complete Time: 16:57 ms3 10/07 16:41 Order name: RAD; Complete Time: 17:43 EDMS 10/07 17:26 Order name: Basic Metabolic Panel; Complete Time: 17:43 EDMS 10/07 17:26 Order name: Troponin High Sensitivity; Complete Time: 17:43 EDMS 10/07 17:26 Order name: NT PRO-BNP; Complete Time: 17:43 EDMS 10/07 17:26 Order name: Magnesium; Complete Time: 17:43 EDMS 10/07 17:36 Order name: CBC with Automated Diff; Complete Time: 17:43 EDMS EC:16 Rate is 109 beats/min. Rhythm is regular. QRS [place] is Normal. QRS interval is ms3 prolonged. Clinical impression: Sinus tachycardia. Interpreted by me. Reviewed by me. Administered Medications: 16:57 Drug: Aspirin Chewable Tablet 324 mg Route: PO; 3 Disposition Summary: 10/07/22 17:45 Transfer Ordered Accepting Physician: Dr evans Transfer Location: Other Acute Care Facility ms3 Reason: Higher level of care ms3 Condition: Stable ms3 Problem: new ms3 Symptoms: are unchanged ms3 Diagnosis - Subsequent non-ST elevation (NSTEMI) myocardial infarction ms3 - Heart failure, unspecified ms3 - Shortness of breath ms3 Forms: - Medication Reconciliation Form ms3 - SBAR form ms3 Signatures: Dispatcher [employer] EDRenetta Nagy RN RN aa5 Edi Zhang DO DO ms3 Dunia Chaudhry RN RN eh3
[2022-10-07 19:58] LABS: SARS-CoV-2 Antigen Rapid Res Negative (Negative)
[2022-10-07] MEDS ORDERED: HEPARIN/D5W 25,000 UNIT/500 ML BAG IV ONE (20:42)
[2022-10-07] MEDS ORDERED: HEPARIN 5000 UNIT/ML 1 ML VIAL ONE (20:42)
[2022-10-08] MEDS ORDERED: LORazepam 2 MG/ML VIAL ONE (03:10)
[2022-10-08] MEDS ORDERED: FUROSEMIDE 20 MG/ 2ML VIAL ONE (03:18)
[2022-10-08] MEDS ORDERED: METOPROLOL TAR 25 MG TAB ONE (03:19)
[2022-10-08] MEDS ORDERED: LIDOCAINE VISCOUS 2% SOLN 15 ML UDC ONE (03:41)
[2022-10-08] MEDS ORDERED: MAGNES/ALUMIN/SIMET 30ML UCUP ONE (03:41)
[2022-10-08] MEDS ORDERED: DIGOXIN 0.25 MG/ML AMP ONE (04:35)
[2022-10-08] MEDS ORDERED: DOBUTAMINE IV ONE (05:04)
[2022-10-08] MEDS ORDERED: NOREPINEPHRINE BITARTRATE/D5W 4 MG/250 ML BAG IV ONE (07:29)
[2022-10-08 08:35] VITALS: TEMP 97.3
[2022-10-08 08:46] VITALS: BP 99/61; O2SAT 99
--- NOTE | 2022-10-08 15:07 | RAD REPORT ---
EXAM DESCRIPTION: RAD - Chest Single View - 10/08/2022 5:25 am CLINICAL HISTORY: Post central line COMPARISON: None FINDINGS: The cardiac silhouette appears borderline enlarged. There is perihilar vascular congestion . There is a right IJ central line with the tip in the mid SVC in satisfactory position. Bilateral pe rihilar and bibasilar pulmonary infiltrates are present. There is evidence of a small right-sided p leural effusion with minor blunting of the right costophrenic angle. No left-sided pleural effusion o r pneumothorax. IMPRESSION: Right IJ central line appears in good position without pneumothorax. Pulmonary edema pattern as described above. Continued radiographic follow-up recommended. Electronically signed by: Ryan Deutsch MD 10/08/2022 6:34 AM COFFEE MACHINE TECHNICIAN Due to temporary technical issues with the PACS/Fluency reporting system, reports are being signed by the in house radiologists without review as a courtesy to insure prompt reporting. The interpreting radiologist is fully responsible for the content of the report.
--- NOTE | 2022-10-08 17:32 | EKG ---
Test Date: 2022-10-08 Test Time: 06:19:19 Heat Treat Puller: TAYA MEASUREMENT RESULTS: Intervals: Rate: 100 [place]: 126 QRSD: 146 QT: 400 QTc: 516 [place]: P: 59 AL: 126 QRS: -10 T: 120 INTERPRETIVE STATEMENTS: Normal sinus rhythm Left bundle branch block Abnormal ECG Compared to ECG 10/07/2022 20:01:30 Left bundle-branch block now present Myocardial infarct finding no longer present T-wave abnormality no longer present Possible ischemia no longer present Electronically Signed On 10-08-22 17:30:52 INDEPENDENT CROP CONSULTANT by Dariusz Lubin
--- NOTE | 2022-10-08 17:33 | EKG ---
Test Date: 2022-10-07 Test Time: 20:01:30 [employer] Network Systems Adminstrator: KARTIK MEASUREMENT RESULTS: Intervals: Rate: 94 ND: 134 QRSD: 138 QT: 390 QTc: 487 [place]: P: 70 ND: 134 QRS: 13 T: 153 INTERPRETIVE STATEMENTS: Normal sinus rhythm Possible Left atrial enlargement Nonspecific intraventricular block Cannot rule out Anteroseptal infarct, age undetermined T wave abnormality, consider lateral ischemia Abnormal ECG Compared to ECG 10/07/2022 15:24:54 Sinus tachycardia no longer present Myocardial infarct finding still present T-wave abnormality still present Possible ischemia still present Electronically Signed On 10-08-22 17:31:18 HARDWOOD FALLER by Dariusz Lubin
--- NOTE | 2022-10-08 17:35 | EKG ---
Test Date: 2022-10-07 Test Time: 15:24:54 Neuropathologist: TABBY MEASUREMENT RESULTS: Intervals: Rate: 109 [place]: 126 QRSD: 138 QT: 382 QTc: 514 [place]: P: 76 [place]: 126 QRS: 15 T: 144 INTERPRETIVE STATEMENTS: Sinus tachycardia Possible Left atrial enlargement Nonspecific intraventricular block Cannot rule out Septal infarct, age undetermined T wave abnormality, consider lateral ischemia Abnormal ECG Compared to ECG 02/15/2021 06:30:30 Myocardial infarct finding now present T-wave abnormality now present Possible ischemia now present Sinus rhythm no longer present Left anterior fascicular block no longer present Left ventricular hypertrophy no longer present Early repolarization no longer present Electronically Signed On 10-08-22 17:32:42 TIRE INSTALLER by Dariusz Lubin
== END 2022-10-08 08:17 ==
LOC: ER 14:39
DX: I22.2 Subsequent non-ST elevation (NSTEMI) myocardial infarction (principal); I21.9 Acute myocardial infarction, unspecified; I50.9 Heart failure, unspecified; I10 Essential (primary) hypertension; E11.9 Type 2 diabetes mellitus without complications; Z20.822 Contact with and (suspected) exposure to COVID-19
CPT/HCPCS: 93005 ×3; 85025; 80048; 36415; 83735; 82947; 85730 ×2; 84484 ×2; 83880; 71045 ×2; 87811; J1644 ×2; J1940; J1160; J1250